=== PATIENT | male | born 1960 ===

== ENCOUNTER → 2023-07-11 08:14 | Outpatient (REF) | payer BC, SELFPAY | LOC: RAD 08:14 | PROVIDERS: ATTENDING PHYSICIAN Family Medicine | DX: F32.9 Major depressive disorder, single episode, unspecified (principal); K21.9 Gastro-esophageal reflux disease without esophagitis; R73.01 Impaired fasting glucose; E78.5 Hyperlipidemia, unspecified; I72.2 Aneurysm of renal artery; I83.93 Asymptomatic varicose veins of bilateral lower extremities | CPT/HCPCS: 76770; 93880 ==

== ENCOUNTER → 2025-03-25 08:48 | Outpatient (REF) | payer BC, MEDICARE, SELFPAY | LOC: RAD 08:48 | DX: M79.641 Pain in right hand (principal) | CPT/HCPCS: 73130 ==